=== PATIENT | male | born 1950 | race Caucasian/White ===

== ENCOUNTER → 2023-02-09 | Outpatient (CLI) | payer MEDICARE ==
--- NOTE | 2023-02-09 16:27 | XR ---
EXAMINATION TYPE: XR abdomen 2V DATE OF EXAM: 02/09/2023 COMPARISON: None INDICATION: History of kidney stones, microscopic hematuria, left flank pain TECHNIQUE: Abdomen is examined in the upright and supine views. FINDINGS: Nonspecific bowel gas is present. No mass effect is evident. No suspicious air-fluid levels or differ ential air-fluid levels are present. No free air is evident. Psoas margins are normal. No organomegaly is present. No suspicious calcifications are evident. Surgical clips are within the pelvis. IMPRESSION: 1. Unremarkable Abdomen
== END | disposition home or self-care (01) ==
LOC: RADXRYALE 09:28
PROVIDERS: ATTEND Physician Assistant Medical
DX: N20.0 Calculus of kidney (principal)
CPT/HCPCS: 74019

== ENCOUNTER → 2024-01-09 | Outpatient (CLI) | payer MEDICARE ==
--- NOTE | 2024-01-16 19:45 | XR ---
EXAMINATION TYPE: XR abdomen 2V DATE OF EXAM: 01/09/2024 CLINICAL DATA: 73-year-old male complaining of flank pain with microscopic hematuria, bladder remova l for bladder cancer. [facility] COMPARISON: 02/09/2023 FINDINGS: Multiple surgical clips in the pelvis. Scattered mild stool. A few scattered air-fluid leve ls probably transient. No dilated small bowel is seen. A couple possible faint left-sided renal calcu li measuring up to 6 mm. IMPRESSION: 1. A couple possible faint calcifications in the left side of the abdomen measuring up to 6 mm could be left renal calculi. 2. Nonspecific, overall nonobstructive bowel gas pattern. Scattered small air-fluid levels could be t ransient or could represent a mild generalized ileus/enteritis.
== END | disposition home or self-care (01) ==
LOC: RADXRYALE 13:35
PROVIDERS: ATTEND Physician Assistant
DX: M54.50 Low back pain, unspecified (principal); R82.998 Other abnormal findings in urine; Z85.51 Personal history of malignant neoplasm of bladder; Z93.6 Other artificial openings of urinary tract status
CPT/HCPCS: 74019